=== PATIENT | female | born 1965 | race Caucasian/White ===

== ENCOUNTER 2019-04-03 14:21 | Outpatient (CLI) | payer OTHER ==
--- NOTE | 2019-04-03 14:33 | RAD ---
XR Foot Lt 3 View STANDARD HISTORY: Pain in the left great toe FINDINGS: No fracture or dislocation is identified. There are mild degenerative changes in the first MTP joint. A plantar calcaneal spur is present.
== END 2019-04-03 14:22 | disposition home or self-care (01) ==
LOC: SCSRAD 14:21
PROVIDERS: ATTEND Family Medicine
DX: M79.672 Pain in left foot (principal)

== ENCOUNTER 2019-06-13 09:54 | Emergency (ER) | payer OTHER ==
[2019-06-13] MEDS ORDERED: Ketorolac Tromethamine 30 MG/ML VIAL ONE ×2 (10:28→10:29)
[2019-06-13] MEDS ORDERED: Adacel (T-DAP) 0.5 ML SYRINGE ONE (10:28)
--- NOTE | 2019-06-13 10:37 | RAD ---
Frontal and lateral imaging of the right femur: 06/13/2019 COMPARISON: None HISTORY: Fall, pain FINDINGS: No fracture or dislocation. No radiopaque foreign body or subcutaneous gas. IMPRESSION: No acute findings.
--- NOTE | 2019-06-13 10:38 | RAD ---
4 views right knee: 06/13/2019 COMPARISON: None HISTORY: Fall, trauma, pain FINDINGS: There is mild medial compartment narrowing. There is enthesophyte formation at the insertio n of the quadriceps tendon. Small nonspecific knee joint effusion is suspected. No displaced fracture or evidence of dislocation. IMPRESSION: No displaced fracture or dislocation seen.
--- NOTE | 2019-06-13 10:38 | RAD ---
Frontal and lateral radiograph right tibia/fibula: 06/13/2019 COMPARISON: None HISTORY: Fall, trauma, pain FINDINGS: No fracture or dislocation. No radiopaque foreign body or subcutaneous gas. There is enthes ophyte formation at the origin of the plantar aponeurosis. IMPRESSION: No acute findings.
== END 2019-06-13 10:55 | disposition home or self-care (01) ==
LOC: SCSER 09:54
DX: S80.01XA Contusion of right knee, initial encounter (principal); Z23 Encounter for immunization; W18.30XA Fall on same level, unspecified, initial encounter
CPT/HCPCS: 90471; 90715; 96372; J1885

== ENCOUNTER 2023-11-10 11:55 | Outpatient (CLI) | payer OTHER | END 2023-11-10 11:56 | disposition home or self-care (01) | LOC: ULT 11:55 → BICULT 11:56 | PROVIDERS: ATTEND Family Medicine | DX: N93.9 Abnormal uterine and vaginal bleeding, unspecified (principal); R93.89 Abnormal findings on diagnostic imaging of other specified body structures | CPT/HCPCS: 76856; 77063; 77067 ==